=== PATIENT | female | born 1985 | race Caucasian/White ===

== ENCOUNTER 2023-01-14 10:01 | Inpatient (IN) | payer MEDICAID, OTHER ==
[~2023-01-14] VITALS: Ht 170.2 cm; Wt 72.7 kg
[2023-01-14 10:54] LABS: BASOPHILS % (AUTO) 0.6 % (0.0-2.0); EOSINOPHILS % (AUTO) 2.6 % (1.0-6.0); HEMATOCRIT 37.8 % (36-46); HEMOGLOBIN 12.7 g/dL (12.0-16.0); LYMPHOCYTES # (AUTO) 1.8 K/uL (1.0-4.8); MEAN CORPUSCULAR HEMOGLOBIN 31.2 pg (26.0-34.0); MEAN CORPUSCULAR HGB CONC 33.6 G/dL (31.0-37.0); MEAN CORPUSCULAR VOLUME 93 fL (80-100); MONOCYTES # (AUTO) 0.6 K/uL (0.1-1.0); MONOCYTES % (AUTO) 8.1 % (2.0-9.0); NEUTROPHILS # (AUTO) 5.2 K/uL (1.8-7.7); NEUTROPHILS % (AUTO) 65.7 % (40.0-70.0); PLATELET COUNT (AUTO) 277 K/uL (150-450); RED BLOOD CELL COUNT(AUTO) 4.07 MIL/uL (4.00-5.20); RED CELL DISTRIBUTION WIDTH 13.6 % (11.5-14.5)
[2023-01-14 10:55] LABS: COVID AG,FIA SOURCE NASAL SWAB
[2023-01-14 11:02] LABS: ANION GAP 6 mmol/L (8-16); CALCIUM, TOTAL 8.9 mg/dL (8.8-10.5); CARBON DIOXIDE 25 mmol/L (22-29); CHLORIDE 105 mmol/L (98-107); CREATININE 0.93 mg/dL (0.60-1.30); GLOMERULAR FILTR. RATE CALC > 60 mL/min (>60); GLUCOSE,RANDOM 85 mg/dL (70-110); POTASSIUM 3.8 mmol/L (3.5-5.1); SODIUM SERUM 136 mmol/L (136-145); UREA NITROGEN, BLOOD 5 mg/dL (7-18)
[2023-01-14 11:06] LABS: ALCOHOL, BLOOD (SERUM) < 3 mg/dL (0-10)
[2023-01-14 11:08] LABS: ALANINE AMINOTRANSFERASE 15 U/L (12-78); ALBUMIN 3.2 g/dL (3.4-5.0); ALKALINE PHOSPHATASE 52 U/L (46-116); ASPARTATE AMINOTRANSFERASE 15 U/L (15-37); BILIRUBIN,TOTAL 0.6 mg/dL (0.1-1.0); TOTAL PROTEIN, SERUM 6.8 g/dL (6.4-8.2)
[2023-01-14 11:17] LABS: SARS-COV2 (COVID) ANTIGEN,FIA Negative (Negative)
[2023-01-14] MEDS ORDERED: QUEtiapine FUMARATE 100 MG TABLET PO PRN (11:45)
[2023-01-14] MEDS ORDERED: ZOLPIDEM TARTRATE 10 MG TABLET PO PRN (11:45)
[2023-01-14 11:57] LABS: APPEARANCE,URINE CLEAR (CLEAR); BILIRUBIN,URINE NEGATIVE (NEGATIVE); COLOR,URINE LIGHT YELLOW (YELLOW); GLUCOSE, URINE (UA) NEGATIVE (NEGATIVE); KETONES,URINE NEGATIVE (NEGATIVE); LEUKOCYTE ESTERASE ,URINE SMALL (NEGATIVE); NITRATE,URINE NEGATIVE (NEGATIVE); OCCULT BLOOD,URINE NEGATIVE (NEGATIVE); PROTEIN,URINE NEGATIVE (NEGATIVE); SPECIFIC GRAVITIY, URINE 1.005 (1.003-1.030); UROBILINOGEN,URINE <=1.0 mg/dL (<=1.0)
[2023-01-14 12:11] LABS: AMPHET/METH SCREEN,URINE POSITIVE (NEGATIVE); BARBITURATE SCREEN, URINE NEGATIVE (NEGATIVE); BENZODIAZEPINES SCREEN,URINE NEGATIVE (NEGATIVE); CANNABINOID SCREEN,URINE POSITIVE (NEGATIVE); COCAINE SCREEN,URINE NEGATIVE (NEGATIVE); METHADONE SCREEN, URINE NEGATIVE (NEGATIVE); OPIATE SCREEN,URINE NEGATIVE (NEGATIVE); PHENCYCLIDINE SCREEN,URINE NEGATIVE (NEGATIVE)
[2023-01-14 12:12] LABS: BACTERIA,URINE Moderate /HPF (None Seen); RBC,URINE None Seen /HPF (0-2); SQUAMOUS EPITHELIAL CELL,UR Few /LPF (None Seen)
[2023-01-14 12:16] LABS: ALCOHOL, URINE DRUG SCREEN NEGATIVE (NEGATIVE)
[2023-01-14] MEDS ORDERED: CEPHALEXIN MONOHYDRATE 500 MG CAPSULE PO ONE (12:30)
[2023-01-14 17:00] VITALS: BP 101/62; PULSE 62; RESP 18; TEMP 97.6; O2SAT 99
[2023-01-15 03:43] VITALS: TEMP 97.6
[2023-01-15] MEDS: CEPHALEXIN MONOHYDRATE 500 MG CAPSULE PO SCH ×3 (08:32→16:45)
[2023-01-15 08:37] VITALS: BP 89/49; PULSE 64; RESP 16; TEMP 97.8; O2SAT 98
[2023-01-15] MEDS: BuPROPion HCL XL 150 MG ER TABLET PO SCH (12:12)
[2023-01-15] MEDS: LamoTRIgine 25 MG TABLET PO SCH (12:13)
[2023-01-15] MEDS ORDERED: MAGNESIUM HYDROXIDE SUSPENSION 30 ML UDCUP PO PRN (16:00)
[2023-01-15] MEDS ORDERED: NICOTINE 14 MG/24 HOUR PATCH TD PRN (16:00)
[2023-01-15] MEDS ORDERED: CYCLOBENZAPRINE HCL 10 MG TABLET PO PRN ×2 (16:00→17:00)
[2023-01-15] MEDS ORDERED: IBUPROFEN 400 MG TABLET PO PRN (16:00)
[2023-01-15] MEDS ORDERED: CloNIDine HCL 0.1 MG TABLET PO PRN (16:00)
[2023-01-15] MEDS ORDERED: LOPERAMIDE HCL 2 MG CAPSULE PO PRN (16:00)
[2023-01-15] MEDS ORDERED: MAG HYDROX/ALUMINUM HYD/SIMETH ES 30 ML SUSPENSION UDCUP PO PRN (16:00)
[2023-01-15] MEDS ORDERED: ALBUTEROL SULFATE HFA 90 MCG/PUFF 8 GM INHALER IH PRN (16:00)
[2023-01-15] MEDS ORDERED: PETROLATUM,WHITE 28 GM JELLY TP PRN (16:00)
[2023-01-15] MEDS ORDERED: DOCUSATE SODIUM 100 MG CAPSULE PO PRN (16:00)
[2023-01-15] MEDS ORDERED: ACETAMINOPHEN 325 MG TABLET PO PRN (16:00)
[2023-01-15] MEDS ORDERED: ONDANSETRON HCL 4 MG TABLET PO PRN (16:00)
[2023-01-15] MEDS ORDERED: GuaiFENesin/D-METHORPHAN [SUGAR-FREE] 200-20MG/10 ML SYRUP UDCUP PO PRN (16:00)
[2023-01-15] MEDS: LITHIUM CARBONATE 300 MG CAPSULE PO SCH (16:44)
[2023-01-15] MEDS: RisperiDONE 1 MG TABLET PO SCH (16:44)
[2023-01-15 21:37] VITALS: BP 100/56; PULSE 69; RESP 18; TEMP 97.6; O2SAT 96
[2023-01-15] MEDS: LORazepam 2 MG TABLET PO PRN (22:01)
[2023-01-16 08:38] LABS: HEMOGLOBIN A1C 4.7 % (3.8-5.6)
[2023-01-16] MEDS: LamoTRIgine 25 MG TABLET PO SCH (08:41)
[2023-01-16] MEDS: BuPROPion HCL XL 150 MG ER TABLET PO SCH (08:41)
[2023-01-16] MEDS: CEPHALEXIN MONOHYDRATE 500 MG CAPSULE PO SCH ×3 (08:41→16:38)
[2023-01-16] MEDS: RisperiDONE 1 MG TABLET PO SCH ×2 (08:41→16:38)
[2023-01-16] MEDS: LITHIUM CARBONATE 300 MG CAPSULE PO SCH ×2 (08:41→16:38)
[2023-01-16 08:45] LABS: THYROID STIMULATING HORMONE 1.4 uIU/mL (0.36-3.74)
[2023-01-16 08:46] VITALS: BP 90/54; PULSE 85; RESP 18; TEMP 97.6; O2SAT 97
[2023-01-16 09:10] LABS: CHOL/HDL RATIO 3.2 (3.9-5.7)
[2023-01-16] MEDS ORDERED: HALOPERIDOL LACTATE 5 MG/ML VIAL IM ONE (11:45)
[2023-01-16] MEDS ORDERED: LORazepam 2 MG/ML VIAL IM ONE (11:45)
[2023-01-16] MEDS ORDERED: DiphenhydrAMINE HCL 50 MG/ML VIAL IM ONE (11:45)
[2023-01-16] MEDS ORDERED: CEPHALEXIN MONOHYDRATE 250 MG CAPSULE PO SCH (17:00)
[2023-01-16 20:38] VITALS: BP 92/51; PULSE 80; RESP 17; TEMP 97.3; O2SAT 98
[2023-01-17] MEDS: LORazepam 2 MG TABLET PO PRN (08:38)
[2023-01-17] MEDS: LITHIUM CARBONATE 300 MG CAPSULE PO SCH ×2 (08:38→16:10)
[2023-01-17] MEDS: RisperiDONE 1 MG TABLET PO SCH ×2 (08:39→16:10)
[2023-01-17] MEDS: BuPROPion HCL XL 150 MG ER TABLET PO SCH (08:42)
[2023-01-17] MEDS: CEPHALEXIN MONOHYDRATE 250 MG CAPSULE PO SCH ×3 (08:42→16:11)
[2023-01-17 08:57] VITALS: BP 90/68; PULSE 98; RESP 18; TEMP 97.9; O2SAT 98
[2023-01-17] MEDS: LamoTRIgine 25 MG TABLET PO SCH (10:00)
[2023-01-17 20:13] VITALS: BP 98/61; PULSE 83; RESP 18; TEMP 97; O2SAT 97
[2023-01-18 08:17] VITALS: BP 105/62; PULSE 88; RESP 18; TEMP 97.8; O2SAT 98
[2023-01-18] MEDS: CEPHALEXIN MONOHYDRATE 250 MG CAPSULE PO SCH (08:27)
[2023-01-18] MEDS: LamoTRIgine 25 MG TABLET PO SCH (08:27)
[2023-01-18] MEDS: RisperiDONE 1 MG TABLET PO SCH (08:27)
[2023-01-18] MEDS: LITHIUM CARBONATE 300 MG CAPSULE PO SCH (08:27)
[2023-01-18] MEDS: BuPROPion HCL XL 150 MG ER TABLET PO SCH (08:27)
[2023-01-18] MEDS ORDERED: LITH300C3 PO (09:37)
[2023-01-18] MEDS ORDERED: LAMO25TA36 PO (09:37)
[2023-01-18] MEDS ORDERED: RISP1TAB98 PO (09:37)
[2023-01-18] MEDS ORDERED: BUPR-49 PO (09:37)
[2023-01-18] MEDS ORDERED: CEPH-556 PO ×2 (12:08→15:08)
== END 2023-01-18 13:04 | disposition home or self-care (01) | DRG 750 ==
LOC: EMS 10:05 → B3A 13:20
PROVIDERS: ADMIT Psychiatry & Neurology Psychiatry; ATTEND Psychiatry & Neurology Psychiatry
DX: F25.1 Schizoaffective disorder, depressive type (principal); R45.851 Suicidal ideations; F17.210 Nicotine dependence, cigarettes, uncomplicated; G89.29 Other chronic pain; M54.9 Dorsalgia, unspecified; Z20.822 Contact with and (suspected) exposure to COVID-19; N39.0 Urinary tract infection, site not specified; F19.10 Other psychoactive substance abuse, uncomplicated; M62.838 Other muscle spasm; Z79.899 Other long term (current) drug therapy
CPT/HCPCS: 70450; 70486; 72125; 80053; 80061; 80307; 81001; 83036; 84443; 84703; 85025; 87086; 87186; 99285; G0480; J1200; J1630; J2060